=== PATIENT | female | born 1990 | race Caucasian/White ===

== ENCOUNTER 2016-08-15 18:40 | Emergency (ER) | payer OTHER ==
[~2016-08-15] VITALS: Ht 147.3 cm; Wt 73.5 kg
[~2016-08-15 18:40] MED LIST: ACETAMINOP-COD118 ML PO; ALBUTEROL0.09 MG/A1 INH; ALPRAZOLAM0.5 MG PO; ANTIVERT 12.512.5 MG PO; ASPIRIN81 M1 PO; CARAFATE1 GM/10 M1 PO; DOXYCYCLINE100 MG PO; FLUOXETINE HYDR40 MG PO; LEVSIN-SL0.125 MG SL; LO LOESTRIN FE1 TAB PO; MULTIVITAMIN1 TAB PO; NEXPLANON68 M1; NORCO 325 MG-7.1 TAB PO; ONDANSETRON HCL4 MG PO; PANTOPRAZOLE SO40 M1 PO; SUMATRIPTAN20 MG; VICODIN5-300 PO; VITAB121000 PO; ZOFRAN ODT4 M1 PO; ZOFRAN ODT4 M1 SL
[2016-08-15 19:04] VITALS: BP 129/91
--- NOTE | 2016-08-15 21:17 | ED GI/GU/ABDOMINAL COMPLAINT ---
History of Present Illness General Chief Complaint: Abdominal Pain/Flank Pain Stated Complaint: PT HAS ABDOMINAL PAIN FOR 5 DYS Source: patient Exam Limitations: no limitations Vital Signs & Intake/Output Vital Signs & Intake/Output Vital Signs Date Time Temp Pulse Resp B/P Pulse O2 O2 Flow FiO2 Ox Delivery Rate 08/15 2056 Room Air 08/15 1903 97.0 71 18 129/91 96 Room Air Allergies Coded Allergies: prednisone (Severe, SOB, SHAKING 01/05/16) oxycodone (From PERCOCET) (Intermediate, "IRRITABLE" 01/05/16) metoclopramide (From REGLAN) (WEAK AND FEELS LIKE BUGS CRAWLING IN HER SKIN 09/17) hydromorphone (From DILAUDID) (Mild, "MAKES ME FEEL WEIRD" 01/05/16) Reconcile Medications Etonogestrel (Nexplanon) 68 MG IMPLANT LEFT ARM - CONTROL (Reported) Hydrocodone/Acetaminophen (Vicodin 5-300 MG Tablet) 5 MG-300 MG TABLET 1 TAB PO TID PRN PAIN Ondansetron (Zofran Odt) 4 MG TAB.RAPDIS 1 TAB SL Q6P PRN NAUSEA Pantoprazole Sodium 40 MG TABLET.DR 1 TAB PO DAILY GI (Reported) Promethazine HCl 25 MG TABLET 1 TAB PO Q6P PRN NAUSEA Sucralfate (Carafate) 1 GM/10 ML ORAL.SUSP 10 ML PO 4 TIMES/DAY HELPS ULCER HEALING 1 hour before food and bedtime Triage Note: 26 YO FEMALE TO TRIAGE C/O ABD PAIN X1.5 WEEKS AGO. +NAUSEA/VOMTIING. DENIES URIANRY S/S. LAST BOWEL MOVMENT WAS THIS AM AND NORMAL PER PT. Triage Nurses Notes Reviewed? yes ? N Is pt currently ? No Onset: Gradual Timing: recent history Quality/Severity: moderate Severity Numbers: 5 Location: right lower quadrant, suprapubic Radiation: no radiation Activities at Onset: none HPI: Patient is a 26-year-old female with a past medical history of gastric sleeve repair performed remotely who presents emergent with a 5 day history of gradually worsening suprapubic abdominal pain. Patient states in the last 24 hours she has began having symptoms of nausea and vomiting is unable tolerate anything by mouth. Denies any dysuria hematuria vaginal bleeding fever back pain Past History Travel History Traveled to [place] past 21 day No Medical History Any Pertinent Medical History? 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 No Review of Systems Review of Systems Constitutional: Reports: no symptoms. EENTM: Reports: no symptoms. Respiratory: Reports: no symptoms. Cardiovascular: Reports: no symptoms. GI: Reports: see HPI, abdominal pain. Genitourinary: Reports: no symptoms. Musculoskeletal: Reports: no symptoms. Skin: Reports: no symptoms. Neurological/Psychological: Reports: no symptoms. Hematologic/Endocrine: Reports: no symptoms. Immunologic/Allergic: Reports: no symptoms. All Other Systems: Reviewed and Negative Physical Exam Physical Exam General Appearance: mild distress Gastrointestinal: normal bowel sounds, soft, MODERATE SUPRAPUBIC AND RIGHT LOWER QUADRANT PAIN NO REBOUND TENDERNESS NO PERITONEAL SIGNS Comments: HEENT: Normal EENT exam, Neck: Supple, no lymphadenopathy, normal range of motion without pain or tenderness Back: Nontender, no CVA tenderness Cardiovascular: Regular rate and rhythms no murmurs rubs or gallops, normal JVP Respiratory: Chest nontender. No respiratory distress.breath sounds clear to auscultation bilaterally Extremity: No edema, no calf tenderness to palpation, normal and equal pulses. Neuro: Alert oriented x3, motor sensory normal, Skin: No appreciable rash on exposed skin, skin is warm and dry. Psych: Mood and affect is normal, memory and judgment is normal. Core Measures ACS in differential dx? No Severe Sepsis Present: No Septic Shock Present: No Progress Differential Diagnosis: AAA, AMI, appendicitis, biliary colic, bowel obstruction , colon cancer, cholecystitis, diverticulitis, ectopic , endometritis, esophageal varices, gastritis, hepatitis, hernia, hemorrhoids, ischemic bowel, inflamm bowel dis, intrauterine , kidney stone, Rubina-Tracie tear, ovarian cyst, ovarian torsion, pancreatitis, PID/cervicitis, peptic ulcer, PUD/ GERD, perforated viscous, SBO, threatened AB, UTI/pyelo Plan of Care: Orders Procedure Date/time Status LACTIC ACID 08/16 20 Active LIPASE 08/15 2120 Complete LACTIC ACID 08/15 2120 Complete COMPREHENSIVE METABOLIC PANEL 08/15 2120 Complete CBC WITHOUT DIFFERENTIAL 08/15 2120 Complete AMYLASE 08/15 2120 Complete Add-on Test (ER Only) 08/15 2051 Active URINE 08/15 2009 Complete CULTURE,URINE 08/15 1903 Active URINALYSIS 08/15 1903 Complete Laboratory Tests 08/15/162119: Anion Gap 9, Estimated GFR > 60, BUN/Creatinine Ratio 13.3, Glucose 76, Lactic Acid 1.0, Calcium 9.9, Total Bilirubin 0.6, AST 64 H, ALT 40, Alkaline Phosphatase 69, Total Protein 6.9, Albumin 4.0, Globulin 2.9, Albumin/Globulin Ratio 1.4, Amylase < 30 L, Lipase 29, CBC w Diff NO MAN DIFF REQ, RBC 4.81, MCV 87.9, MCH 28.9, RDW 14.0, MPV 10.4, Gran % 70.5, Lymphocytes % 23.3, Monocytes % 5.5, Eosinophils % 0.2, Basophils % 0.5, Absolute Granulocytes 5.8, Absolute Lymphocytes 1.9, Absolute Monocytes 0.5, Absolute Eosinophils 0, Absolute Basophils 0, PUBS MCHC 32.8 L 08/15/162009: Urine Color VIC, Urine Clarity HAZY H, Urine pH 5.5, Ur Specific Wana >= 1.030, Urine Protein 30 H, Urine Ketones 15 H, Urine Nitrite POS H, Urine Bilirubin NEG@ICTO, Urine Urobilinogen 1.0, Ur Leukocyte Esterase NEG, Ur Microscopic SEDIMENT EXAMINED, Urine RBC 1-3, Urine WBC 3-5 H, Ur Epithelial Cells MANY H, Urine Mucus PACKD H, Urine Hemoglobin NEG, Urine Glucose NEG, Urine Test NEGATIVE Microbiology 08/15 2009 URINE ROUT: Urine Culture - RECD Patient was administered morphine and had significant resolution of pain however nausea still persisted in which patient was given Phenergan. Patient has initial unremarkable blood work CT scan currently is pending CT scan was resulted showing no acute process. Patient was by mouth challenged and could tolerate upon discharge. Patient was strongly advised to follow-up with her gastric sleeve surgeon if symptoms still continued on Wednesday. Upon discharge patient looks well no apparent distress and will comply with discharge instructions and had no questions (ADE ESTRADA,JESSY) Diagnostic Imaging: Viewed by Me: CT Scan. Radiology Impression: no acute abnormality Initial ED EKG: none Comments: PATIENT: SANDHYA WALL PRESENT AGE: 26 PATIENT ACCOUNT NO: [id number] : 91 LOCATION: [facility] ORDERING PHYSICIAN: JESSY ESTRADA SERVICE DATE: 08/15/16 EXAM TYPE: CAT - CT ABD & PELVIS W IV CONTRAST EXAMINATION: CT ABDOMEN AND PELVIS WITH CONTRAST CLINICAL INFORMATION: Right lower quadrant and suprapubic pain. COMPARISON: CT abdomen and pelvis 02/14/2016. TECHNIQUE: Multidetector volumetric imaging was performed of the abdomen and pelvis before and after the IV administration of 94 mL of Optiray 320 intravenous contrast. Sagittal and coronal reformatted images were obtained on the technologist's workstation. DLP: 334 mGy-cm FINDINGS: LUNG BASES: The visualized lung bases are unremarkable. LIVER, GALLBLADDER, AND BILIARY TREE: There is diffuse low-attenuation of the liver parenchyma, indicative of diffuse hepatic steatosis. A geographic region of hypoattenuation adjacent to the falciform ligament is nonspecific but characteristic in location for focal fatty infiltration of the liver. No enhancing liver lesions are identified. The gallbladder is surgically absent. There is mild prominence of the central hepatic bile ducts. No significant extrahepatic biliary ductal dilatation is identified. PANCREAS: Unremarkable. SPLEEN: Mild contour abnormality along the upper pole of the spleen, corresponding to the site of the patient's previously noted splenic infarct. The spleen is otherwise normal in size. ADRENAL GLANDS: Unremarkable. KIDNEYS AND URETERS: The kidneys are normal in size and enhance homogeneously, without focal lesions. There is no appreciable nephrolithiasis or hydroureteronephrosis of either kidney or renal collecting system. No ureteral stones are identified. BLADDER: Unremarkable. GASTROINTESTINAL TRACT: Evaluation of the gastrointestinal system demonstrates postsurgical changes related to prior gastric sleeve bypass. Normal anatomic orientation of the stomach relative to the duodenum. Normal caliber of abdominal and pelvic bowel loops, without evidence of obstruction or ileus. No circumferential bowel wall thickening with surrounding inflammatory changes to suggest an underlying infectious or inflammatory enterocolitis. Normal-appearing appendix within the right lower quadrant of the abdomen. No organizing intra-abdominal fluid collections or free intraperitoneal air. ABDOMINAL WALL: No significant hernia is appreciated. LYMPH NODES: No significant abdominal or pelvic adenopathy. VASCULAR: Patent abdominal vasculature. Normal course and caliber of the abdominal aorta and its branching vessels, without aneurysmal dilatation. PELVIC VISCERA: Unremarkable. OSSEOUS STRUCTURES: No acute osseous abnormality. Normal alignment of the imaged thoracolumbar spine. No visible destructive osseous lesions. IMPRESSION: 1. No acute findings within the abdomen or pelvis to explain patient symptomatology. Stable postsurgical changes related to prior gastric sleeve bypass. Normal caliber of abdominal and pelvic bowel loops, without findings indicative of small bowel obstruction or ileus. 2. Fatty infiltration of the liver. Departure Departure Disposition: HOME OR SELF CARE Condition: Stable Clinical Impression Primary Impression: Abdominal pain Referrals: PEDRO JEFFRIES MD (PCP/Family) Additional Instructions: As discussed begin a 24-hour clear liquids and bland diet to rest your bowels. Follow-up this week with your gastric sleeve surgeon for further evaluation and treatment if symptoms persist. If symptoms worsen return to emergency room. Begin the prescription of Phenergan for future nausea and prescription of Vicodin for pain. Prescriptions waiting at your [facility] Departure Forms: Customer Survey General Discharge Information Prescriptions: Current Visit Scripts Promethazine HCl 1 TAB PO Q6P PRN NAUSEA #15 TAB Hydrocodone/Acetaminophen (Vicodin 5-300 MG Tablet) 1 TAB PO TID PRN PAIN #10 TAB
[2016-08-15 21:40] LABS: ABSOLUTE BASOPHIL COUNT 0 /CUMM (0.0-0.2); ABSOLUTE EOSINOPHIL COUNT 0 /CUMM (0.0-0.7); ABSOLUTE GRANULOCYTE CT 5.8 /CUMM (1.4-6.5); ABSOLUTE LYMPH COUNT 1.9 /CUMM (1.2-3.4); ABSOLUTE MONOCYTE COUNT 0.5 /CUMM (0.10-0.60); BASOPHIL % 0.5 % (0.0-2.0); EOSINOPHIL % 0.2 % (0-5); GRANULOCYTE % 70.5 % (42.2-75.2); HEMATOCRIT 42.3 % (37-47); MEAN CORPUSCULAR HGB 28.9 PG (27.0-31.0); MEAN CORPUSCULAR HGB CONC 32.8 G/DL (33.0-37.0); MEAN CORPUSCULAR VOLUME 87.9 FL (81.0-99.0); MEAN PLATELET VOLUME 10.4 FL (7.4-10.4); PLATELET COUNT 328 /CUMM (130-400); RED BLOOD CELL CT 4.81 /CUMM (4.20-5.40); WHITE BLOOD CELL COUNT 8.2 /CUMM (4.8-10.8)
--- NOTE | 2016-08-15 22:50 | CT SCAN REPORT ---
EXAMINATION: CT ABDOMEN AND PELVIS WITH CONTRAST CLINICAL INFORMATION: Right lower quadrant and suprapubic pain. COMPARISON: CT abdomen and pelvis 02/14/2016. TECHNIQUE: Multidetector volumetric imaging was performed of the abdomen and pelvis before and after the IV administration of 94 mL of Optiray 320 intravenous contrast. Sagittal and coronal reformatted images were obtained on the technologist's workstation. DLP: 334 mGy-cm FINDINGS: LUNG BASES: The visualized lung bases are unremarkable. LIVER, GALLBLADDER, AND BILIARY TREE: There is diffuse low-attenuation of the liver parenchyma, indicative of diffuse hepatic steatosis. A geographic region of hypoattenuation adjacent to the falciform ligament is nonspecific but characteristic in location for focal fatty infiltration of the liver. No enhancing liver lesions are identified. The gallbladder is surgically absent. There is mild prominence of the central hepatic bile ducts. No significant extrahepatic biliary ductal dilatation is identified. PANCREAS: Unremarkable. SPLEEN: Mild contour abnormality along the upper pole of the spleen, corresponding to the site of the patient's previously noted splenic infarct. The spleen is otherwise normal in size. ADRENAL GLANDS: Unremarkable. KIDNEYS AND URETERS: The kidneys are normal in size and enhance homogeneously, without focal lesions. There is no appreciable nephrolithiasis or hydroureteronephrosis of either kidney or renal collecting system. No ureteral stones are identified. BLADDER: Unremarkable. GASTROINTESTINAL TRACT: Evaluation of the gastrointestinal system demonstrates postsurgical changes related to prior gastric sleeve bypass. Normal anatomic orientation of the stomach relative to the duodenum. Normal caliber of abdominal and pelvic bowel loops, without evidence of obstruction or ileus. No circumferential bowel wall thickening with surrounding inflammatory changes to suggest an underlying infectious or inflammatory enterocolitis. Normal-appearing appendix within the right lower quadrant of the abdomen. No organizing intra-abdominal fluid collections or free intraperitoneal air. ABDOMINAL WALL: No significant hernia is appreciated. LYMPH NODES: No significant abdominal or pelvic adenopathy. VASCULAR: Patent abdominal vasculature. Normal course and caliber of the abdominal aorta and its branching vessels, without aneurysmal dilatation. PELVIC VISCERA: Unremarkable. OSSEOUS STRUCTURES: No acute osseous abnormality. Normal alignment of the imaged thoracolumbar spine. No visible destructive osseous lesions. IMPRESSION: 1. No acute findings within the abdomen or pelvis to explain patient symptomatology. Stable postsurgical changes related to prior gastric sleeve bypass. Normal caliber of abdominal and pelvic bowel loops, without findings indicative of small bowel obstruction or ileus. 2. Fatty infiltration of the liver.
[2016-08-15] MEDS ORDERED: VICODIN 5-3001 EACH PO (23:05)
[2016-08-15] MEDS ORDERED: PROMETHAZINE HC25 M3 PO (23:05)
== END 2016-08-15 23:17 ==
LOC: ERH 18:40
PROVIDERS: Physician Assistant
DX: R10.32 Left lower quadrant pain (principal); R10.2 Pelvic and perineal pain
CPT/HCPCS: 74177; 81001; 81025; 87086; 96374; 96375; J2405; J2550